=== PATIENT | male | born 1960 | race American Indian/Alaskan Native ===

== ENCOUNTER 2016-12-07 05:43 | Day surgery (SDC) | payer MEDICARE ==
[2016-12-07] MEDS ORDERED: ANCEF/STERILE WATER 2 GM/20 ML 2 GM/20 ML SYRINGE IV NR (06:00)
[2016-12-07] MEDS ORDERED: NACL 0.9% 1000 ML 1,000 ML IV SCH (06:00)
[2016-12-07] MEDS ORDERED: NACL BACTERIOSTATIC INFILTRATI ONE (06:38)
--- NOTE | 2016-12-07 06:45 | Anesthesia Consultation ---
Anesthesia Consult and Med Hx Date of service: 12/07/16 - Airway Anesthetic Teeth Evaluation: Good ROM Head & Neck: Adequate Mental/Hyoid Distance: Adequate Mallampati Class: Class II Intubation Access Assessment: Probably Good - Pulmonary Exam CTA: Yes - Cardiac Exam Cardiac Exam: RRR - Pre-Operative Health Status ASA Pre-Surgery Classification: ASA4 Proposed Anesthetic Plan: General - Pulmonary Hx Smoking: Yes (former) Hx Asthma: No COPD: No Hx Pneumonia: No - Cardiovascular System Hx Hypertension: Yes (x 7 yrs) - Central Nervous System Hx Psychiatric Problems: No - Endocrine Hx Renal Disease: Yes (dialysis t,th,sat) Hx End Stage Renal Disease: Yes - Hematic Hx Anemia: No - Other Systems Hx Substance Use: Yes (marijuana occas, last 2 weeks ago) Hx Cancer: No
--- NOTE | 2016-12-07 06:46 | Anesthesia Day of Surgery ---
Anesthesia Day of Surgery - Day of Surgery Patient Examined: Yes Patient H&P Reviewed: Yes Patient is NPO: Yes
[2016-12-07] MEDS ORDERED: PEPCID PO NR (07:00)
[2016-12-07] MEDS ORDERED: VERSED IV NR (07:00)
[2016-12-07 07:09] LABS: Basophils % (Auto) 1.5 % (0.0-1.8); Eosinophils % (Auto) 4.7 % (0.0-4.3); Hematocrit 37.5 % (35.5-45.6); Hemoglobin 12.7 gm/dl (11.8-15.2); Mean Corpuscular HGB Conc 34 % (32-34); Mean Corpuscular Hemoglobin 30 pg (28-32); Mean Corpuscular Volume 89 fl (84-94); Platelet Count 233 K/mm3 (140-440); Red Blood Count 4.23 M/mm3 (3.65-5.03); Red Cell Distribution Width 15.3 % (13.2-15.2); White Blood Count 10.7 K/mm3 (4.5-11.0)
[2016-12-07 07:22] LABS: BUN/Creatinine Ratio 4.17; Calcium 7.9 mg/dL (8.4-10.2); Chloride 92.7 mmol/L (98-107)
[2016-12-07] MEDS ORDERED: SUBLIMAZE ONE (07:33)
[2016-12-07] MEDS ORDERED: DIPRIVAN 10 MG/ML IV ONE ×2 (07:33→09:02)
[2016-12-07 07:37] LABS: Potassium 4.8 mmol/L (3.6-5.0)
[2016-12-07] MEDS ORDERED: NACL 0.9% 100 ML ONE (07:39)
[2016-12-07] MEDS ORDERED: ROBINUL ONE (07:39)
[2016-12-07] MEDS ORDERED: NEO SYNEPHRINE ONE (07:39)
[2016-12-07] MEDS ORDERED: HEPARIN 10,000 UNITS/10 ML ONE (07:45)
[2016-12-07] MEDS ORDERED: PROTAMINE SULFATE ONE (07:45)
[2016-12-07] MEDS ORDERED: MARCAINE 0.5% 30 ML INFILTRATI ONE (07:45)
[2016-12-07] MEDS ORDERED: NACL 0.9% 250ML 250 ML ONE (07:45)
[2016-12-07] MEDS ORDERED: SODIUM BICARBONATE ONE (07:46)
[2016-12-07] MEDS ORDERED: NACL 0.9% 500 ML 500 ML ONE (07:46)
[2016-12-07] MEDS ORDERED: XYLOCAINE 1%/ EPI 1:100,000 INFILTRATI ONE ×2 (07:47→08:57)
[2016-12-07] MEDS ORDERED: HEPARIN 10,000 UNITS/10 ML 1,000 UNIT in NACL 0.9% 250ML 250 ML IR ONE (08:17)
[2016-12-07] MEDS ORDERED: ePHEDrine SULFATE ONE (08:35)
[2016-12-07] MEDS ORDERED: DECADRON ONE (08:56)
[2016-12-07] MEDS ORDERED: ZOFRAN ONE (08:56)
[2016-12-07] MEDS ORDERED: NACL 0.9% 1000 ML IR ONE (08:57)
[2016-12-07] MEDS ORDERED: DILAUDID IV PRN (08:57)
[2016-12-07] MEDS ORDERED: PROAIR IH ONE (09:12)
[2016-12-07] MEDS ORDERED: DILAUDID ONE (09:31)
[2016-12-07] MEDS ORDERED: ZOFRAN IV PRN (10:00)
[2016-12-07] MEDS ORDERED: MARCAINE 0.5% INFILTRATI ONE (11:01)
[2016-12-07] MEDS ORDERED: HEPARIN 10,000 UNITS/10 ML 2,000 UNIT in NACL 0.9% 500 ML 500 ML IR ONE (11:58)
--- NOTE | 2016-12-07 12:29 | Post Operative Note ---
Pre-op diagnosis: thrombosed dialysis access graft, end-stage renal disease on dialysis Post-op diagnosis: other (same with thrombosed left axillary vein) Findings: Thrombosed axillary vein successfully reopened using Tamera thrombectomy, calcified but patent brachial artery, good thrill and bruit in graft after creation, biphasic radial artery Doppler signal Procedure: #1 creation of left upper arm looped brachial artery to axillary vein AV graft, reoperative, increased difficulty, open axillary vein thrombectomy Anesthesia: other (LMA) Surgeon: IRENA KINCAID Molecular Spectroscopist: CHAPIS TIDWELL Estimated blood loss: 50-100ml Pathology: list (axillary vein thrombus) Specimen disposition: to lab Condition: stable Disposition: PACU
--- NOTE | 2016-12-07 13:38 | Post Anesthesia Evaluation ---
- Post Anesthesia Evaluation Patient Participated: Yes Airway Patent: Yes Stable Respiratory Function: Yes Temp > 96.8F: Yes Pain Manageable: Yes Adequeate Hydration: Yes Anesthesia Complications: No
--- NOTE | 2016-12-07 13:38 | Post Anesthesia Evaluation ---
- Post Anesthesia Evaluation Patient Participated: Yes Airway Patent: Yes Stable Respiratory Function: Yes Nausea/Vomiting: No Temp > 96.8F: Yes Pain Manageable: Yes Adequeate Hydration: Yes Anesthesia Complications: No Block Receding Appropriately: Not Applicable Patient on Ventilator: No
--- NOTE | 2016-12-07 13:38 | Post Anesthesia Evaluation ---
- Post Anesthesia Evaluation Patient Participated: Yes Airway Patent: Yes Stable Respiratory Function: Yes Temp > 96.8F: Yes Pain Manageable: Yes Adequeate Hydration: Yes Anesthesia Complications: No
--- NOTE | 2016-12-07 15:48 | Short Stay Summary ---
Short Stay Documentation - History H&P: obtained from office - Allergies and Medications Current Medications: Allergies No Known Allergies Allergy (Verified 12/06/16 08:21) Home Medications Medication Instructions Recorded Confirmed Last Taken Type Oxycodone HCl/Acetaminophen 1 each PO Q6HR PRN 05/09/13 12/07/16 11/09/16 History [Percocet 7.5/325 mg] Prednisone [predniSONE] 5 mg PO PADDY 05/09/13 12/07/16 12/06/16 History NIFEdipine [Procardia Xl] 90 mg PO DAILY 01/25/14 12/07/16 12/07/16 04:15 History Calcium Acetate 667 mg PO DAILY 07/12/16 12/07/16 12/06/16 History Glimepiride [Amaryl] 4 mg PO QAM 07/12/16 12/07/16 12/06/16 History Oxycodone HCl/Acetaminophen 1 each PO Q6HR PRN #30 tablet 12/07/16 Unknown Rx [Percocet 7.5/325 mg] Active Medications Famotidine (Pepcid) 20 mg PO PREOP NR Stop: 12/07/16 16:00 Last Admin: 12/07/16 07:44 Dose: 20 mg Cefazolin Sodium (Ancef/Sterile Water 2 Gm/20 Ml) 2 gm in 20 mls @ 80 mls/hr IV PREOP NR PRN Reason: Protocol Stop: 12/07/16 23:59 Sodium Chloride (Nacl 0.9% 1000 Ml) 1,000 mls @ 42 mls/hr IV DIRECT PERRY Last Admin: 12/07/16 07:00 Dose: 42 mls/hr Midazolam HCl (Versed) 2 mg IV PREOP NR Stop: 12/07/16 23:59 Last Admin: 12/07/16 07:50 Dose: 2 mg - Brief post op/procedure progress note Procedure: Patient Name: EARLE BREWER Date of : 60 Patient Status: Surgical Day Care Attending Provider: IRENA KINCAID Date: 12/07/16 12:25 Initialization Date: 12/07/16 12:25 Pre-op diagnosis: thrombosed dialysis access graft, end-stage renal disease on dialysis Post-op diagnosis: other (same with thrombosed left axillary vein) Findings: Thrombosed axillary vein successfully reopened using Tamera thrombectomy, calcified but patent brachial artery, good thrill and bruit in graft after creation, biphasic radial artery Doppler signal Procedure: #1 creation of left upper arm looped brachial artery to axillary vein AV graft, reoperative, increased difficulty, open axillary vein thrombectomy Anesthesia: other (LMA) Surgeon: IRENA KINCAID Household Cook: CHAPIS TIDWELL Estimated blood loss: 50-100ml Pathology: list (axillary vein thrombus) Specimen disposition: to lab Condition: stable Disposition: PACU Additional CC's: IRENE CRAIG - Disposition Condition at discharge: Good Disposition: - TO HOME OR SELFCARE - Discharge Diagnoses (1) AV graft malfunction Status: Acute Qualifiers: Encounter type: E (2) ESRD (end stage renal disease) on dialysis Status: Acute Short Stay Discharge Plan Activity: advance as tolerated Weight Bearing Status: Weight Bear as Tolerated Diet: renal Wound: keep clean and dry Additional Instructions: YOU ARE SCHEDULED TO FOLLOW UP IN DR KINCAID'S [place] OFFICE ON 12/21/16 AT 0900 CONTINUE YOUR RENAL DIET ACTIVITY TOLERATED MAY SHOWER TOMORROW, DO NOT SCRUB INCISION, DO NOT SOAK INCISION IN BATH, HOTTUB , POOLS OR LAKES, ETC. CALL OFFICE WITH ANY PROBLEMS OR CONCERNS. Follow up with: IRENA KINCAID MD [Staff Physician] - 14 Days Prescriptions: Oxycodone HCl/Acetaminophen [Percocet 7.5/325 mg] 1 each PO Q6HR PRN #30 tablet PRN Reason: Pain
--- NOTE | 2016-12-07 17:22 | Operative Report ---
Operative Report Operative Report: Date of procedure: 12/07/2016 Pre-operative diagnosis: Thrombosed hemodialysis access, end-stage renal disease on dialysis Post-operative diagnosis: Same with left axillary deep vein thrombosis Procedure name(s): Creation of new left upper arm looped brachial artery to axillary vein hemodialysis graft with PTFE (4-7 mm stepped propaten), reoperative with increased difficulty, open axillary venous thrombectomy with Tamera catheter Surgeon: Maicol Francis MD Parts Classifier: Jani Hall PA-C Anesthesia: LMA EBL: Less than 75 mL Specimen(s): Thrombus Complications: None Findings: Recently thrombosed axillary vein requiring venous thrombectomy for successful anastomosis could be done, heavily calcified brachial artery, and excellent Doppler signals in the radial artery postanastomosis with no evidence of recurrent arterial steal Procedure: Patient in the supine position left arm and chest were then prepped and draped using standard sterile technique. I made a longitudinal incision in the left axilla through the old scar and extended it proximally after anesthetizing the skin for local control and dissection was deepened and the old graft to vein anastomosis was easily identified and the graft was noted to be occluded as was the vein. I then followed the vein well under the pectoralis minor muscle for finding an area that suggested it was patent with a softer more compliant characteristic to the vein. That vein was mobilized for several centimeters well under the axilla not quite to the chest wall and controlled using vessel loops. I then made a longitudinal venotomy and found thrombus in the vessel. I removed some of the thrombus and then obtained a Tamera catheter and advanced it into the central circulation and withdrew it several times removing more thrombus until I had excellent back bleeding. I also removed thrombus from the arm portion of the vein until that vessel was free of active thrombus. Was some scar tissue in that vessel which I removed as much as possible but felt that the backbleeding was sufficient to support it the venous anastomosis of the graft. Attention was then turned to the antecubital fossa where I made a longitudinal incision through anesthetized skin and carried down into the subcutaneous tissue. I felt however that although there was a palpable brachial pulse at the elbow because of the patient 's history of arterial steal and a previously failed Dril procedure I needed to create a proximal arterial inflow in order to avoid re-creating the steal syndrome. I then identified the brachial artery in the upper one third of the humeral region and made a third incision on the inner aspect of the arm and using a combination and blunt and sharp dissection identified the brachial artery just above and just below the original artery to vein bypass incision. Artery was skeletonized with the exception of side branches and controlled using vessel loops. I then opened the artery longitudinally and beveled the 4 mm in of the propaten PTFE graft and created an end-to-side anastomosis with 6- 0 Prolene suture in running technique. Retrograde and antegrade flushing down the graft was performed and the graft was occluded and blood material was removed from the lumen of the graft. Hemostasis was obtained using quick clot. Excellent Doppler signals were noted at the wrist after the clamps were removed. I then created subcutaneous tunnel between the antecubital incision and the arterial anastomosis. This was done for deep enough tunnel to discourage any cannulation of this limb of the looped graft. Second tunnel was made lateral to the old failed graft in the PTFE was then pulled into the axillary incision in a nonrotational fashion. Marcaine was used to anesthetize the tunnels prior to graft insertion. I then trimmed the graft and appropriate length and configuration and created an end to side anastomosis between the graft and the previously made venotomy. Prior to the completion of the suture line antegrade and retrograde venous flushing was performed suture line was then completed and air was evacuated by retrograde venous filling. Flow was initially released from the graft retrograde into the arm and then released to the shoulder. Graft developed an immediate thrill and bruit. Hemostasis was obtained using quick clot. All incisions were then blocked with Marcaine. The radial artery was assessed by Doppler and found to have an excellent signal. The incisions were closed using 3-0 Vicryl subcutaneous for Monocryl subcuticular and skin was reapproximated using Dermabond. Patient was then returned to the recovery in stable condition having tolerated the procedure well. He had a Functional AV graft and no evidence of arterial steal.
[2016-12-07 17:42] VITALS: BP 138/79
== END 2016-12-07 14:48 | disposition home or self-care (01) ==
LOC: OR 05:43
PROVIDERS: ATTEND Surgery Vascular Surgery
DX: T82.868A Thrombosis due to vascular prosthetic devices, implants and grafts, initial encounter (principal); E11.22 Type 2 diabetes mellitus with diabetic chronic kidney disease; I12.0 Hypertensive chronic kidney disease with stage 5 chronic kidney disease or end stage renal disease; N18.6 End stage renal disease; F12.90 Cannabis use, unspecified, uncomplicated; Z99.2 Dependence on renal dialysis; Z98.890 Other specified postprocedural states; Z72.89 Other problems related to lifestyle; Z79.899 Other long term (current) drug therapy; Z87.891 Personal history of nicotine dependence; Z79.84 Long term (current) use of oral hypoglycemic drugs; Y83.2 Surgical operation with anastomosis, bypass or graft as the cause of abnormal reaction of the patient, or of later complication, without mention of misadventure at the time of the procedure
CPT/HCPCS: 36415; 36830; 36831; 80048; 82962; 85025; 88304; C1757; C1768; J0690; J1100; J1170; J1644; J2250; J2370; J2405; J2704; J2930; J3010; J7030; J7040; J7050; J2720